=== PATIENT | male | born 1970 | race Caucasian/White ===

== ENCOUNTER 2017-02-25 14:13 | Emergency (ER) | payer OTHER ==
[~2017-02-25] VITALS: Ht 172.7 cm; Wt 77.3 kg
[~2017-02-25 14:13] MED LIST: PANT40TA3 PO
[2017-02-25 14:26] VITALS: BP 110/76; PULSE 60; RESP 16; O2SAT 98
--- NOTE | 2017-02-25 15:07 | ED.REPORT ---
HPI-General Illness Date of Service February 25, 2017 ED Provider: The patient is a 47 year old male who presents to the emergency department with multiple complaints that have been ongoing for the last few months. He has noticed increased fatigue, shortness of breath, left-sided chest pain, dizziness , nausea, decreased appetite, and hand and feet swelling in the morning. The chest pain has been occurring everyday and has seemed to be worse in the last few days. He usually has pain for a few hours in the morning and it will gradually improve throughout the day. He describes the pain as intermittently "sharp" especially with deep breaths. He presents today because he feels like his symptoms are getting worse. He has not been evaluated for any of these symptoms. He also mentions acid reflux in the morning. He has been taking pantoprazole for a few months with no relief. He denies fever, chills, weight loss, cough, congestion, vomiting or diarrhea. The patient is currently going through a divorce and has been undergoing a lot of stress recently. He is still able to sleep well. Nursing Notes Stated Complaint: HAND SWELLING,NUMBNESS IN ARMS Chief Complaint: General Complaint Nursing Notes Reviewed: Yes Allergies: Coded Allergies: No Known Allergies (Unverified Allergy, Unknown, 02/23/16) Scheduled Pantoprazole DR (Pantoprazole DR) 40 Mg Tablet.dr 40 MG PO DAILY General Time Seen by MD: 15:06 Chief Complaint Multip medical complaints Hx Obtained From: Patient, Other family... Arrived By: Walk-in Sudden in Onset?: No Onset Occurred: More than a week ago... Symptom Duration: Since onset Location: : Chest Quality: Painful, Sharp Severity: Current: No pain currently Severity: Maximum: Severe Recent Healthcare: No recent doctor visit, No recent hospitalization Similar Sx Previous: No Past Medical History Past Medical History Migraines GERD Reports: Cancer Past Surgical History Hemorrhoidectomy Family History Noncontributory Smoking History Never Smoker Social History Alcohol Use: Denies alcohol use Drug Use: Denies drug use Other Social History: Good social support, , Local resident Ambulatory Status Independent Review of Systems +Acid reflux, decreased appetite Full Review of Systems Constitutional: Reports: Fatigue, Denies: Chills, Fever, Recent wt loss Respiratory: Reports: Shortness of breath Cardiovascular: Reports: Chest pain GI: Reports: Nausea, Denies: Diarrhea, Vomiting Musculoskeletal: Reports: Extremity swelling Neurologic: Reports: Dizziness Psychiatric: Reports: Stress Complete sys rev & neg: except as marked. Physical Exam Vital Signs Vital Signs Date Time Temp Pulse Resp B/P Pulse Ox O2 Delivery O2 Flow Rate FiO2 02/25/17 17:56 36.5 53 16 110/77 98 Room Air 02/25/17 15:44 54 12 123/68 98 Room Air 02/25/17 14:26 36.4 60 16 110/76 98 Room Air Initial VS: Reviewed, Vital signs normal Head / Eyes: Atraumatic, Normocephalic, PERRL ENT: Mucous membranes moist, Conjunctiva normal, No scleral icterus Neck: Supple, Non-tender, Full range of motion Respiratory: Breath sounds normal, Clear to auscultation, No respiratory distress Abdomen / GI: Soft, Non-tender, No guarding, No rebound, No distention Lymphatic: No lymphadenopathy Extremities: Vascular intact, Neuro intact, No swelling, No tenderness Skin: Warm, Dry, No cyanosis Neurologic: Alert, Oriented, Nonfocal General/Constitutional: Awake, Alert, No acute distress, Well appearing, Cooperative Cardiovascular: Regular rhythm, Heart sounds NL, No murmurs, No rubs Heart Rate / Rhythm: Positive: Bradycardia Psychiatric: Affect NL, Mood NL, Not suicidal, Not homicidal, No hallucinations , Cognitive function NL, Judgment/insight NL, Thought content NL Interpretation & Diagnostics Lab Results Interpretation Result Diagram: 02/25/17 1515 02/25/17 1515 Test 02/25/17 15:15 White Blood Count 5.3th/mm3 (3.8-10.1) Red Blood Count 5.24mil/mm3 (4.40-5.80) Hemoglobin 15.3g/dL (13.8-17.2) Hematocrit 45.5% (41.0-50.0) Mean Corpuscular Volume 86.8fL (81-100) Mean Corpuscular Hemoglobin 29.2pg (27.0-35.0) Mean Corpuscular Hemoglobin Concent 33.6% (32.0-37.0) Red Cell Distribution Width 12.7% (12.3-15.4) Platelet Count 243bil/L (150-400) Sodium Level 141mEq/L (134-144) Potassium Level 4.2mEq/L (3.5-5.2) Chloride Level 103mEq/L (97-108) Carbon Dioxide Level 27mmol/L (18-29) Blood Urea Nitrogen 10mg/dL (6-24) Creatinine 0.87mg/dL (0.76-1.27) Estimat Glomerular Filtration Rate 99mL/min (>59) Glucose Level 98mg/dL (60-99) Calcium Level 9.0mg/dL (8.5-10.1) Magnesium Level 2.1mg/dL (1.6-2.6) Total Bilirubin 0.7mg/dL (0.0-1.2) Aspartate Amino Transf (AST/SGOT) 20U/L (0-50) Alanine Aminotransferase (ALT/SGPT) 16U/L (0-44) Alkaline Phosphatase 51U/L (25-150) Troponin T < 0.010ug/L (0.0-0.011) Total Protein 6.4g/dL (6.4-8.4) Albumin 4.0g/dL (3.4-5.0) Thyroid Stimulating Hormone (TSH) 1.810uIU/mL (0.450-4.500) ECG Interpretation ECG Interpretation: Sinus rhythm Normal intervals Normal axis Inferior Q waves in II, III, aVF, V1, V2 No acute ST changes Similar to EKG on 03/03/2015 Time: 15:09 Interpreted by: ED physician X-Ray Chest Interpretation Chest Xray Interpretation: IMPRESSION: 1. No acute cardiopulmonary disease. Dictated by: Pieter Dillon M.D. on 02/25/2017 at 15:19 Interpretation / Wet Read by: Interpret - Radiologist Re-Eval/Medical Decision Med Decision/Clinical Course The patient's predominant complaint was fatigue although he has multiple other complaints. With regard to the swelling in his hands I considered electrolyte abnormality or renal failure, all of his labs are normal. Sinuses fatigue I considered pneumonia versus other source of infection versus related to stress versus hypothyroid. All of his labs and studies were normal. The patient was encouraged to follow-up with his doctor for further evaluation and to return to gastroenterology given he still having some reflux symptoms. Patient also mentioned a history of tachycardia and was encouraged to follow-up with cardiology. He saw a lump receiver once and was told he needed to see another lump receiver but he never did. Source of Hx: Old records Time of Eval: 16:55 Re-Evaluation/Progress Note: Rechecked the patient. Discussed plan for discharge. All questions were addressed. Counseled Regarding: Diagnosis, Lab results, Need for follow-up, When/why to return to ED Discharge & Departure Primary Impression: Fatigue Fatigue type: unspecified Qualified Code: R53.83 - Other fatigue Disposition: Home Discharge Condition All VS Reviewed: Yes Condition: Stable Additional Instructions: Thank you for entrusting us with your care today. It is unclear as to the cause of your symptoms. It may be stress related. You should followup with your irrigator valve pipe in the next few weeks. It may help your reflux to sleep slightly upright. Go back and see your doctor for a referral back to cardiology as well as to evaluate you for other toxins. Return here for any new or worsening symptoms. Referrals: Alyse Zuñiga MD (PCP) Scribe Attestation Portions of this note were transcribed by Jaqui Ngo. I, Dr. Meadows personally performed the history, physical exam and medical decision-making; I reviewed and confirmed the accuracy of the information in the transcribed note. Signed by: Romel Rush, 02/25/2017 at 1710. copies to: Alyse Zuñiga MD, Jena M MD February 25, 2017 15:07 Jaqui Ngo February 25, 2017 15:15
[2017-02-25] MEDS ORDERED: LidocaineVisc 2%:Antacid 1:1 10 mL Syringe PO ONE (15:20)
[2017-02-25] MEDS ORDERED: 0.9% Sodium Chloride 500 ML IV ONE (15:20)
[2017-02-25 15:23] LABS: Mean Corpuscular Hemoglobin 29.2 pg (27.0-35.0); Mean Corpuscular Volume 86.8 fL (81-100)
--- NOTE | 2017-02-25 15:26 | DRSVH ---
PROCEDURE: X-RAY CHEST ONE VIEW, PORTABLE ([id number]) INDICATIONS: Chest pain TECHNIQUE: One view of the chest was acquired. COMPARISON: [facility], , CHEST 1VW (PORTABLE), 02/27/2015, 20:50. FINDINGS: Surgical changes and devices: None. Lungs and pleura: No pleural effusions or pneumothorax. Lungs are clear. Mediastinum: Mediastinal contours appear normal. Heart size is normal. Bones and chest wall: No suspicious bony lesions. Overlying soft tissues appear unremarkable. IMPRESSION: 1. No acute cardiopulmonary disease. Dictated by: Pieter Dillon M.D. on 02/25/2017 at 15:19 Approved by: Pieter Dillon M.D. on 02/25/2017 at 15:19
[2017-02-25 15:44] VITALS: BP 123/68; PULSE 54; RESP 12; O2SAT 98
[2017-02-25 15:50] LABS: TROPONIN T < 0.010 ug/L (0.0-0.011)
[2017-02-25 15:58] LABS: Magnesium 2.1 mg/dL (1.6-2.6)
[2017-02-25 17:56] VITALS: BP 110/77; PULSE 53; RESP 16; O2SAT 98
== END 2017-02-25 17:57 | disposition home or self-care (01) ==
LOC: SED 14:13
DX: R53.83 Other fatigue (principal); R07.9 Chest pain, unspecified; K21.9 Gastro-esophageal reflux disease without esophagitis
CPT/HCPCS: 36415; 71010; 80053; 83735; 84443; 84484; 85027; 93005; 99285; J7040